=== PATIENT | female | born 1990 | race African-American/Black ===

== ENCOUNTER 2016-10-10 18:49 | Emergency (ER) | payer MEDICAID, OTHER ==
[~2016-10-10] VITALS: Ht 170.2 cm; Wt 90.0 kg
[2016-10-10 18:51] VITALS: BP 134/79; PULSE 88; RESP 20; TEMP 98.5; O2SAT 98
[2016-10-10] MEDS ORDERED: SODIUM CHLOR 0.9% 1000 ML INJ 1,000 ML IV ONE (23:21)
[2016-10-10] MEDS ORDERED: SODIUM CHLORIDE 0.9% FLUSH 5 ML FLUSH IVF PRN (23:30)
[2016-10-10 23:55] LABS: AUTOMATED NEUTROPHIL # 3.7 TH/MM3 (1.8-7.7); BASOPHIL # 0.1 TH/MM3 (0-0.2); BASOPHIL % 0.8 % (0.0-2.0); EOSINOPHIL # 0.2 TH/MM3 (0-0.4); EOSINOPHIL % 2.2 % (0.0-4.0); HEMATOCRIT 37.8 % (35.0-46.0); HEMO FLAGS DIFF FINAL; LYMPH % 49.8 % (9.0-44.0); LYMPHOCYTE # 4.3 TH/MM3 (1.0-4.8); MEAN CORPUSCULAR HEMOGLOBIN 31.6 PG (27.0-34.0); MEAN CORPUSCULAR HGB CONC 34.7 % (32.0-36.0); MONO % 3.9 % (0.0-8.0); NEUT % 43.3 % (16.0-70.0); PLATELET COUNT 277 TH/MM3 (150-450); RED BLOOD COUNT 4.15 MIL/MM3 (4.00-5.30); RED CELL DISTRIBUTION WIDTH 12.8 % (11.6-17.2); WHITE BLOOD COUNT 8.6 TH/MM3 (4.0-11.0)
--- NOTE | 2016-10-11 00:13 | PD ---
HPI Chief Complaint: Dizziness Time Seen by Provider: 23:11 Travel History International Travel<30 days: No Contact w/Intl Traveler<30days: No Traveled to known affect area: No History of Present Illness HPI Patient is a 26 year old female who comes in with two days of dizziness. She says she has had a total of 6 episodes over the past two days. She says she feels very hot when the episodes come on and she feels like she is going to pass out. She says she has not passed out. She has been checking her sugar because she has a strong family history of diabetes, but it has been normal. She says she occasionally gets a pain in her chest, under her left arm pit, but this does not seem to be related to these episodes. She is not having any symptoms currently. She denies fever or chills. She denies nausea or vomiting. She says her LMP was Sep 18. She denies family history of sudden cardiac . PFSH Past Medical History ?: Unknown LMP: 09/18/16 : 4 Para: 3 : 1 Social History Alcohol Use: No Tobacco Use: No Substance Use: No Allergies-Medications (Allergen,Severity, Reaction): Coded Allergies: No Known Allergies (Unverified , 10/10/16) Reported Meds & Prescriptions Reported Meds & Active Scripts Active No Active Prescriptions or Reported Medications Review of Systems Except as stated in HPI: all other systems reviewed are Neg General / Constitutional: No: Fever, Chills Eyes: No: Blurred Vision HENT: No: Headaches Respiratory: No: Cough, Shortness of Breath Gastrointestinal: No: Nausea, Vomiting, Abdominal Pain Musculoskeletal: No: Edema, Pain Skin: No Rash, No Change in Pigmentation Neurologic: Positive: Dizziness Physical Exam Narrative GENERAL: Awake and alert, in no acute distress. SKIN: Warm and dry. HEAD: Atraumatic. Normocephalic. EYES: Pupils equal and round. No scleral icterus. Extraocular movements intact. ENT: Mucous membranes pink and moist. NECK: Trachea midline. No JVD. CARDIOVASCULAR: Regular rate and rhythm. No murmur appreciated. RESPIRATORY: No accessory muscle use. Clear to auscultation. Breath sounds equal bilaterally. GASTROINTESTINAL: Abdomen soft, non-tender, nondistended. MUSCULOSKELETAL: No obvious deformities. No clubbing. No cyanosis. No edema. NEUROLOGICAL: Awake and alert. No obvious cranial nerve deficits. Motor grossly within normal limits. Normal speech. PSYCHIATRIC: Appropriate mood and affect; insight and judgment normal. Data Data Last Documented VS Vital Signs Date Time Temp Pulse Resp B/P Pulse Ox O2 Delivery O2 Flow Rate FiO2 10/10/16 23:30 Room Air 10/10/16 18:51 98.5 88 20 134/79 98 Orders Electrocardiogram (10/10/16 23:21) Ed Urine Pregnancytest Poc (10/10/16 23:21) Complete Blood Count With Diff (10/10/16 23:21) Comprehensive Metabolic Panel (10/10/16 23:21) Troponin I (10/10/16 23:21) Urinalysis - C+S If Indicated (10/10/16 23:21) Ua Includes Microscopic (10/10/16 23:21) Chest, Pa & Lat (10/10/16 23:21) Ecg Monitoring (10/10/16 23:21) Iv Access Insert/Monitor (10/10/16 23:21) Oximetry (10/10/16 23:21) Sodium Chloride 0.9% Flush (Ns Flush) (10/10/16 23:30) Sodium Chlor 0.9% 1000 Ml Inj (Ns 1000 M (10/10/16 23:21) Labs Laboratory Tests Test 10/10/16 23:35 White Blood Count 8.6 TH/MM3 Red Blood Count 4.15 MIL/MM3 Hemoglobin 13.1 GM/DL Hematocrit 37.8 % Mean Corpuscular Volume 91.0 FL Mean Corpuscular Hemoglobin 31.6 PG Mean Corpuscular Hemoglobin 34.7 % Concent Red Cell Distribution Width 12.8 % Platelet Count 277 TH/MM3 Mean Platelet Volume 8.0 FL Neutrophils (%) (Auto) 43.3 % Lymphocytes (%) (Auto) 49.8 % Monocytes (%) (Auto) 3.9 % Eosinophils (%) (Auto) 2.2 % Basophils (%) (Auto) 0.8 % Neutrophils # (Auto) 3.7 TH/MM3 Lymphocytes # (Auto) 4.3 TH/MM3 Monocytes # (Auto) 0.3 TH/MM3 Eosinophils # (Auto) 0.2 TH/MM3 Basophils # (Auto) 0.1 TH/MM3 CBC Comment DIFF FINAL Differential Comment Urine Color YELLOW Urine Turbidity HAZY Urine pH 6.5 Urine Specific Cord 1.034 Urine Protein TRACE mg/dL Urine Glucose (UA) NEG mg/dL Urine Ketones NEG mg/dL Urine Occult Blood SMALL Urine Nitrite NEG Urine Bilirubin NEG Urine Urobilinogen 2.0 MG/DL Urine Leukocyte Esterase NEG Urine RBC 7 /hpf Urine WBC 2 /hpf Urine Squamous Epithelial 6 /hpf Cells Urine Bacteria RARE /hpf Urine Mucus FEW /lpf Microscopic Urinalysis Comment CULT NOT INDICATED Sodium Level 140 MEQ/L Potassium Level 3.8 MEQ/L Chloride Level 107 MEQ/L Carbon Dioxide Level 27.4 MEQ/L Anion Gap 6 MEQ/L Blood Urea Nitrogen 11 MG/DL Creatinine 0.82 MG/DL Estimat Glomerular Filtration 103 ML/MIN Rate Random Glucose 115 MG/DL Calcium Level 8.6 MG/DL Total Bilirubin 0.4 MG/DL Aspartate Amino Transf 20 U/L (AST/SGOT) Alanine Aminotransferase 20 U/L (ALT/SGPT) Alkaline Phosphatase 79 U/L Troponin I LESS THAN 0.02 NG/ML Total Protein 7.8 GM/DL Albumin 3.7 GM/DL [facility] Medical Decision Making Medical Screen Exam Complete: Yes Emergency Medical Condition: Yes Interpretation(s) ECG shows normal sinus rhythm at 72, no ST elevation or depression, normal intervals. Differential Diagnosis Electrolyte abnormality versus dehydration versus versus arrhythmia Narrative Course Patient is a 26-year-old female who comes in because of several episodes of dizziness. Currently she isn't symptomatic. Exam shows no abnormalities. There are no neurologic abnormalities. ECG shows no signs of arrhythmia or ischemia. Labs sent show no acute abnormalities. Urine test is negative. Chest x-ray shows no acute abnormalities. Patient has had no symptoms here in the emergency department. She'll be discharged home to follow-up with her primary doctor. Advised to return to the ED as needed for any worsening symptoms. Diagnosis Primary Impression: Dizziness Patient Instructions: Dizziness (ED), General Instructions Additional Instructions: Drink plenty of fluids. Follow up with a primary care physician. Return to the ED as needed for any worsening symptoms. Scripts No Active Prescriptions or Reported Meds Disposition: DISCHARGE HOME Condition: Stable Lucila Cheema MD Oct 11, 2016 00:13
--- NOTE | 2016-10-11 00:23 | RADRPT ---
EXAM DATE/TIME: 10/10/2016 23:58 [facility] COMPARISON: No previous studies available for comparison. INDICATIONS : Chest pain. MEDICAL HISTORY : None. SURGICAL HISTORY : None. ENCOUNTER: Initial ACUITY: 1 day PAIN SCORE: 4/10 LOCATION: Left chest FINDINGS: PA and lateral views of the chest demonstrate the lungs to be symmetrically aerated without evidence of mass, infiltrate or effusion. The cardiomediastinal contours are unremarkable. Osseous structure s are intact. CONCLUSION: 1. No acute cardiopulmonary disease. Nic Driscoll MD on October 11, 2016 at 0:21 Board Certified Radiologist. This report was verified electronically.
[2016-10-11 00:29] LABS: BACTERIA, URINE RARE /hpf; BLOOD, URINE SMALL (NEG); GLUCOSE,URINE NEG (NEG); KETONE, URINE NEG (NEG); MUCUS URINE FEW /lpf (OCC); NITRITE,URINE NEG (NEG); PH, URINE 6.5 (5.0-8.5); SQUAMOUS EPITHELIAL CELL URINE 6 /hpf (0-5); URINE COLOR YELLOW (YELLW/STRAW)
[2016-10-11 00:30] LABS: ALKALINE PHOSPHATASE 79 U/L (45-117); ALT (GPT) 20 U/L (10-53); ANION GAP 6 MEQ/L (5-15); AST (GOT) 20 U/L (15-37); BICARBONATE 27.4 MEQ/L (21.0-32.0); BLOOD UREA NITROGEN 11 MG/DL (7-18); CHLORIDE 107 MEQ/L (98-107); COMMENT (UR) CULT NOT INDICATED; CULTURE IF INDICATED CULT NOT INDICATED; GLOMERULAR FILTRATION RATE 103 ML/MIN (>89); POTASSIUM 3.8 MEQ/L (3.5-5.1); SODIUM (NA) 140 MEQ/L (136-145); TOTAL BILIRUBIN ADULT 0.4 MG/DL (0.2-1.0)
--- NOTE | 2016-10-11 16:42 | EKG ---
Date Performed: 10/10/2016 Time Performed: 23:34:52 PTAGE: 26 years EKG: Sinus rhythm WITH SINUS ARRHYTHMIA NORMAL ECG NO PREVIOUS TRACING DOCTOR: Moi Mcgovern Interpretating Date/Time 10/11/2016 16:40:51
== END 2016-10-11 00:52 | disposition home or self-care (01) ==
LOC: NEPB 18:49
DX: R42 Dizziness and giddiness (principal)
CPT/HCPCS: 71020; 80053; 81001; 84484; 84703; 85025; 93005; 99284; J7030